=== PATIENT | male | born 1990 | race Caucasian/White ===

== ENCOUNTER → 2016-10-08 | Day surgery (SDC) | payer OTHER ==
[~2016-10-08] MED LIST: IOPAMIDOL (ISOVUE-300) 100 ML BTL IV ONE; MIDAZOLAM 2 MG/2 ML VIAL ONE; PROMETHAZINE HCL 25 MG/ML INJ ONE; fentaNYL 100 MCG/2 ML INJ ONE
[2016-10-08 08:50] LABS: % IMMATURE GRANULYOCYTES 0.4 % (0.0-1.1); ABSOLUTE IMMATURE GRANULOCYTES 0.04 10^3/uL (0.00-0.10); ADD DIFF? NO; ADD MORPH? NO; ADD SCAN? NO; ATYPICAL LYMPHOCYTE FLAG 20 (0-99); FRAGMENT RBC FLAG 0 (0-99); HEMOGLOBIN 18.1 g/dL (13.7-17.5); LEFT SHIFT FLG 0 (0-99); LIPEMIA HEMOLYSIS FLAG 90 (0-99); MEAN CELL HEMOGLOBIN 30.8 pg (27.9-34.1); MEAN CELL HEMOGLOBIN CONCENTR. 34.8 g/dL (32.4-36.7); MEAN CELL VOLUME 88.6 fL (81.5-99.8); MEAN PLATELET VOLUME 8.9 fL (8.7-11.7); PLATELET CLUMPS FLAG 0 (0-99); PLATELET COUNT 376 10^3/uL (150-400); RED BLOOD CELL COUNT 5.87 10^6/uL (4.40-6.38)
[2016-10-08 09:06] LABS: INR 0.98 (0.83-1.16); PROTIME(PATIENT) 12.9 SEC (12.0-15.0)
[2016-10-08 09:07] LABS: APTT 29.3 SEC (23.0-38.0)
[2016-10-08 09:08] LABS: GLOMERULAR FILTRATION RATE > 60
== END | disposition home or self-care (01) ==
LOC: FIMAGING 07:56
PROVIDERS: ATTEND Internal Medicine Hematology & Oncology
PROC: B51NYZZ Fluoroscopy of Left Upper Extremity Veins using Other Contrast (ICD-10-PCS; 2016-10-08)
PROC: 05HC33Z Insertion of Infusion Device into Left Basilic Vein, Percutaneous Approach (ICD-10-PCS; principal; 2016-10-08 11:25)
DX: I82.722 Chronic embolism and thrombosis of deep veins of left upper extremity (principal); Z79.01 Long term (current) use of anticoagulants; F17.200 Nicotine dependence, unspecified, uncomplicated
CPT/HCPCS: 36299; 75820; 99152; 99153; C1769; C1894; J1644; J2250; J2550; J3010; Q9967